=== PATIENT | male | born 1975 | race Caucasian/White ===

== ENCOUNTER 2022-08-03 21:23 | Emergency (ER) | payer SELFPAY ==
[2022-08-03] MEDS ORDERED: Lidocaine 1% PF 2 ML SDV INJECT ONE (21:25)
[2022-08-03] MEDS ORDERED: Diphtheria,Pertussis(Acell),Tetanus Vaccine 0.5 ML Syringe IM ONE (21:25)
== END 2022-08-03 22:20 | disposition home or self-care (01) ==
LOC: MW.ED 21:23
DX: S01.81XA Laceration without foreign body of other part of head, initial encounter (principal); Z23 Encounter for immunization; W18.30XA Fall on same level, unspecified, initial encounter
CPT/HCPCS: 12011; 90471; 90715; 99282-25; 99283; J3490